=== PATIENT | male | born 1960 | race Caucasian/White ===

== ENCOUNTER → 2016-10-13 | Outpatient (CLI) | payer BC ==
--- NOTE | 2016-10-13 11:37 | REP ---
LUMBAR SPINE, FIVE VIEWS: HISTORY: Right hip pain. There is no acute fracture. The lumbar intervertebral discs are decreased in height consistent with disc degeneration. Osteophytes are present throughout the lumbar spine. There is narrowing of the L4-5 and L5 - S1 facet joints. There are 8 mm of grade 1 spondylolisthesis of L4 on L5. There appear to be L5 pars defects. IMPRESSION: Degenerative change as described above. Signed by Maicol Webb MD 10/13/2016 11:40 A
--- NOTE | 2016-10-13 12:10 | REP ---
REASON: Hip pain. COMPARISON: None. FINDINGS: The hip joint space is symmetric and relatively well maintained. T here is no acute or destructive osseous lesion. Signed by Virgil Claudio DO 10/13/2016 01:57 P
== END ==
LOC: M ADAMS 10:07
PROVIDERS: ATTEND Nurse Practitioner Adult Health
DX: M25.551 Pain in right hip (principal); M51.37 Other intervertebral disc degeneration, lumbosacral region; M25.78 Osteophyte, vertebrae; M47.817 Spondylosis without myelopathy or radiculopathy, lumbosacral region; M43.16 Spondylolisthesis, lumbar region

== ENCOUNTER → 2016-10-13 | Outpatient (REF) | payer BC ==
[2016-10-13 14:16] LABS: MEAN CORPUSCULAR HEMOGLOBIN 34.4 pg (27.0-33.0); MEAN CORPUSCULAR VOLUME 101.1 fl (80.0-96.0); RED CELL DISTRIBUTION WIDTH 12.9 % (11.5-14.5); WHITE BLOOD COUNT 5.1 K/mm3 (4.0-10.0)
[2016-10-13 14:34] LABS: ALBUMIN 4.1 GM/DL (3.2-5.2); ALBUMIN/GLOBULIN RATIO 1.46 (1.00-1.93); ALKALINE PHOSPHATASE 77 U/L (45-117); ALT/SGPT 25 U/L (12-78); ANION GAP 6 MEQ/L (8-16); AST/SGOT 18 U/L (15-37); BILIRUBIN,TOTAL 0.4 MG/DL (0.2-1.0); BLOOD UREA NITROGEN 23 MG/DL (7-18); CALCIUM LEVEL 9.3 MG/DL (8.5-10.1); CARBON DIOXIDE LEVEL 29 MEQ/L (21-32); CHLORIDE LEVEL 108 MEQ/L (98-107); CHOLESTEROL LEVEL 231 MG/DL (<200); CREATININE FOR GFR 0.83 MG/DL (0.70-1.30); GLOMERULAR FILTRATION RATE > 60.0 (>56); GLUCOSE, FASTING 105 MG/DL (70-105); POTASSIUM SERUM 4.8 MEQ/L (3.5-5.1); SODIUM LEVEL 143 MEQ/L (136-145); TOTAL PROTEIN 6.9 GM/DL (6.4-8.2); TRIGLYCERIDES LEVEL 39 MG/DL (<150); URIC ACID 3.9 MG/DL (3.5-7.2)
== END ==
LOC: M LABDRWAD 13:33
PROVIDERS: ATTEND Nurse Practitioner Adult Health
DX: Z00.00 Encounter for general adult medical examination without abnormal findings (principal); Z82.61 Family history of arthritis; Z83.3 Family history of diabetes mellitus; Z82.69 Family history of other diseases of the musculoskeletal system and connective tissue

== ENCOUNTER → 2017-11-23 | Outpatient (REF) | payer BC ==
[2017-11-23 20:21] LABS: ESTIMATED AVERAGE GLUCOSE 105 MG/DL (60-110); HEMOGLOBIN A1c 5.3 %
[2017-11-23 20:32] LABS: ALBUMIN 4.4 GM/DL (3.2-5.2); ALBUMIN/GLOBULIN RATIO 1.42 (1.00-1.93); ALKALINE PHOSPHATASE 61 U/L (45-117); ALT/SGPT 28 U/L (12-78); ANION GAP 8 MEQ/L (8-16); AST/SGOT 21 U/L (7-37); BILIRUBIN,TOTAL 0.5 MG/DL (0.2-1.0); BLOOD UREA NITROGEN 21 MG/DL (7-18); CALCIUM LEVEL 9.4 MG/DL (8.5-10.1); CARBON DIOXIDE LEVEL 27 MEQ/L (21-32); CHLORIDE LEVEL 106 MEQ/L (98-107); CHOLESTEROL LEVEL 267 MG/DL (<200); CHOLESTEROL RISK RATIO 3.423 (<5); CREATININE FOR GFR 0.69 MG/DL (0.70-1.30); GLOMERULAR FILTRATION RATE > 60.0 (>56); GLUCOSE, FASTING 72 MG/DL (70-100); HDL CHOLESTEROL 78 MG/DL (>40); LDL CHOLESTEROL 175 MG/DL (<100); NON-HDL-C 189 MG/DL; POTASSIUM SERUM 4.5 MEQ/L (3.5-5.1); RHEUMATOID FACTOR QUANT < 10.0 IU/ML (<15.0); SODIUM LEVEL 141 MEQ/L (136-145); TOTAL PROTEIN 7.5 GM/DL (6.4-8.2); TRIGLYCERIDES LEVEL 71 MG/DL (<150)
== END ==
LOC: M SFHCPLAZ 17:12
DX: Z00.00 Encounter for general adult medical examination without abnormal findings (principal); Z83.3 Family history of diabetes mellitus
CPT/HCPCS: 80053

== ENCOUNTER → 2018-03-18 | Outpatient (CLI) | payer BC ==
[~2018-03-18] MED LIST: BEE1CAP PO; MULT1TAB10 PO; OMEG10002 PO
--- NOTE | 2018-03-18 20:41 | ECGEPIP ---
Stationary ECG Study [facility] Test Date: 2018-03-18 Pat Name: DC CHERY Department: Room: - Gender: M Management Architect: : 1960 Requested By: Chino Douglas Order Number: [id number] Reading MD: Deniz Chen Measurements Intervals [place] Rate: 60 P: 42 [place]: 177 QRS: 57 QRSD: 104 T: 55 QT: 396 QTc: 398 Interpretive Statements SINUS RHYTHM Within normal limits. No prior ECG available for comparison at the time of interpretation. Electronically Signed On 03-18-2018 20:41:00 EST by Deniz Chen
== END ==
LOC: M EKG 16:37
PROVIDERS: ATTEND Anesthesiology
DX: Z01.810 Encounter for preprocedural cardiovascular examination (principal); M79.9 Soft tissue disorder, unspecified

== ENCOUNTER 2018-03-22 05:44 | Day surgery (SDC) | payer BC ==
[~2018-03-22] VITALS: Ht 180.3 cm; Wt 101.4 kg
[2018-03-22] MEDS ORDERED: LR 1,000 ML IV ONE (06:00)
[2018-03-22] MEDS ORDERED: BUPIVACAINE/EPIN 0.25% 30 ML VIAL As Ordered ONE (07:13)
[2018-03-22] MEDS ORDERED: fentaNYL 250 MCG/5 ML INJECTION (J3010) As Ordered ONE (07:14)
[2018-03-22] MEDS ORDERED: PROPOFOL 200 MG/20 ML VIAL As Ordered ONE (07:15)
[2018-03-22] MEDS ORDERED: MIDAZOLAM INJ 2 MG/2 ML VIAL (J2250) As Ordered ONE (07:15)
[2018-03-22] MEDS ORDERED: ONDANSETRON 4MG/2ML VIAL (J2405) As Ordered ONE (07:15)
[2018-03-22] MEDS ORDERED: ROCURONIUM BROMIDE 50 MG/5 ML VIAL As Ordered ONE ×3 (07:15→10:33)
[2018-03-22] MEDS ORDERED: LIDOCAINE 2% INJ 100 MG/5 ML SDV (FOR ANES.) As Ordered ONE (07:15)
[2018-03-22] MEDS ORDERED: dexameTHASONE 4 MG/ML 1ML VIAL (J1100) As Ordered ONE (07:15)
[2018-03-22] MEDS ORDERED: HYDROmorphone HCL 2 MG/ML 1ML VIAL (J1170) As Ordered ONE (08:11)
[2018-03-22] MEDS ORDERED: GLYCOPYRROLATE INJ 0.2 MG/ML 2 ML VIAL As Ordered ONE (08:20)
[2018-03-22] MEDS ORDERED: NEOSTIGMINE 10 MG/10 ML VIAL (J2710) As Ordered ONE (08:20)
[2018-03-22] MEDS ORDERED: KETOROLAC 60 MG/2 ML VIAL (J1885) As Ordered ONE (08:20)
[2018-03-22] MEDS ORDERED: fentaNYL 100 MCG/2 ML INJECTION (J3010) As Ordered ONE ×2 (09:23→10:28)
[2018-03-22] MEDS ORDERED: LABETALOL HCL 100 MG/20 ML VIAL As Ordered ONE (10:31)
[2018-03-22] MEDS ORDERED: PERCOCET 5MG/325MG TAB PO PRN (11:30)
[2018-03-22] MEDS ORDERED: fentaNYL 100 MCG/2 ML INJECTION (J3010) IV PRN (11:30)
[2018-03-22] MEDS ORDERED: ONDANSETRON 4MG/2ML VIAL (J2405) IV PRN (11:30)
[2018-03-22] MEDS ORDERED: LR 1,000 ML IV SCH (11:30)
[2018-03-22] MEDS ORDERED: NORCO, ANEXSIA 5/325MG TABLET (HYDROcodone/ACETAMINOPHEN) PO PRN (11:30)
[2018-03-22] MEDS ORDERED: METOCLOPRAMIDE INJ 10MG/2ML VIAL (J2765) IV PRN (11:30)
[2018-03-22 13:10] VITALS: BP 140/81
--- NOTE | 2018-03-22 14:10 | RO ---
DATE OF PROCEDURE: 03/22/2018 PREOPERATIVE DIAGNOSIS: Left inguinal hernia. POSTOPERATIVE DIAGNOSIS: Left inguinal hernia. PROCEDURE: Robotic-assisted left inguinal hernia repair. SURGEON: Dr. Rocky López STAGE BUILDER: Vivi Tovar ANESTHESIA: General. ESTIMATED BLOOD LOSS: 10. COMPLICATIONS: None. INDICATION FOR PROCEDURE: The patient is a 57-year-old male who presents with a large left inguinal hernia. Recommendation was to proceed with robotic repair. Risks and benefits of the procedure not limited to, but including bleeding, infection, hernia formation, hernia recurrence, damage to surrounding structures, need for further surgery were discussed in detail with the patient. Informed consent was obtained and the procedure was planned. DESCRIPTION OF PROCEDURE: The patient was brought back to operating room seven after sufficient sedation. A Elizabeth catheter was placed. Next, the abdomen was sterilely prepped and draped. A time-out was done to confirm proper patient and proper procedure. Next, an 8 mm incision made supraumbilically in the midline. Veress needle was inserted and his abdomen was insufflated to 15 mmHg. Next, the Veress needle was removed and a 5 mm OptiVu port was used to gain access to the abdomen. Once the abdomen was entered, two 8 mm robotic ports were placed in the left and right abdomen. The 5 mm port was then removed and replaced with an 8 mm robotic camera port. Next, the robot was docked to the ports. The peritoneum was then incised in a curved incision in the left groin to expose the preperitoneal space. Preperitoneal space was then dissected from lateral to medial, around the lateral side of the cord structures and the hernia sac. The same process was done medially until the pubic symphysis was identified. Once this was completed, the dissection was taken circumferentially around the hernia sac trying to reduce it. The hernia sac was extremely large with extensive adhesions and was very long as well. I was unable to completely reduce the entire thing. I reduced as much as possible and to the point where all the cord structures were easily identified and they were safely out of the way and then ligated the hernia sac from there. Once that was completed, Bard 3DMax mesh was placed in the preperitoneal space, sutured to the pubic symphysis with a #2-0 Vicryl suture. The peritoneum was then closed with a running and #2-0 V-Loc suture, thus ending the procedure. The port sites were closed with #4-0 Vicryl subcuticular sutures. The abdomen cleaned and dried. Steri-Strips, 4x4 and tape were applied, thus ending the procedure.
== END 2018-03-22 13:16 | disposition home or self-care (01) ==
LOC: M SDC 05:44 → MERGE 07:30 → M SDC 13:16
PROVIDERS: ATTEND Surgery
DX: K40.90 Unilateral inguinal hernia, without obstruction or gangrene, not specified as recurrent (principal); Z79.899 Other long term (current) drug therapy
CPT/HCPCS: 49650; A6024; C1781; J0690; J1100; J1170; J1885; J2250; J2405; J3010

== ENCOUNTER → 2019-07-23 | Outpatient (CLI) | payer OTHER, MEDICAID ==
[~2019-07-23] MED LIST changes: +MULTIVITAMIN PO
[2019-07-23 15:40] LABS: BASO % 0.6 % (0.0-1.0); EOS # 0.3 10^3/uL (0.0-0.5); EOS % 3.8 % (0.0-3.0); HEMATOCRIT 44.4 % (42.0-52.0); LYMPH # 1.4 10^3/uL (1.5-5.0); LYMPH % 19.2 % (24.0-44.0); MEAN CORPUSCULAR HEMOGLOBIN 33.4 pg (27.0-33.0); MEAN CORPUSCULAR HGB CONC 33.8 g/dl (32.0-36.5); MEAN CORPUSCULAR VOLUME 98.9 fl (80.0-96.0); MONO # 0.7 10^3/uL (0.0-0.8); MONO % 9.7 % (0.0-5.0); NEUTROPHILS # 4.8 10^3/uL (1.5-8.5); NEUTROPHILS % 66.4 % (36.0-66.0); PLATELET COUNT, AUTOMATED 230 10^3/uL (150-450); RED BLOOD COUNT 4.49 10^6/uL (4.30-6.10); WHITE BLOOD COUNT 7.2 10^3/uL (4.0-10.0)
[2019-07-23 16:00] LABS: BLOOD UREA NITROGEN 15 MG/DL (7-18); CALCIUM LEVEL 9.3 MG/DL (8.5-10.1); CARBON DIOXIDE LEVEL 28 MEQ/L (21-32); CHLORIDE LEVEL 103 MEQ/L (98-107); CREATININE FOR GFR 0.74 MG/DL (0.70-1.30); GLOMERULAR FILTRATION RATE > 60.0 (>56); GLUCOSE, FASTING 84 MG/DL (70-100); POTASSIUM SERUM 4.1 MEQ/L (3.5-5.1); SODIUM LEVEL 138 MEQ/L (136-145)
--- NOTE | 2019-07-24 18:11 | ECGEPIP ---
[facility] Test Date: 2019-07-23 Pat Name: DC CHERY Department: Room: - Gender: Male Barrel Filler Head: MARISELA : 1960 Requested By: Tanner Cervantes Order Number: [id number] Reading MD: Alfred Dodge Measurements Intervals [place] Rate: 80 P: 24 [place]: 125 QRS: 55 QRSD: 110 T: 45 QT: 359 QTc: 415 Interpretive Statements SINUS RHYTHM SIMILAR TO 03/18/18 Electronically Signed on 07-24-2019 18:10:56 EDT by Alfred Dodge
== END ==
LOC: M LAB 15:04
PROVIDERS: ATTEND Podiatrist
DX: M20.22 Hallux rigidus, left foot (principal); M79.672 Pain in left foot

== ENCOUNTER → 2019-08-05 | Outpatient (CLI) | payer BC, OTHER, MEDICAID | LOC: M LABSMTC 10:24 | PROVIDERS: ATTEND Anesthesiology | DX: Z01.818 Encounter for other preprocedural examination (principal); Z11.59 Encounter for screening for other viral diseases | CPT/HCPCS: C9803; U0003 ==

== ENCOUNTER 2019-08-08 07:07 | Day surgery (SDC) | payer OTHER ==
[~2019-08-08] VITALS: Ht 180.3 cm; Wt 102.1 kg
[~2019-08-08 07:07] MED LIST changes: +LIDOCAINE 1% MDV 20ML VIAL SQ PRN; +ceFAZolin SOD 2 GM in IV 1 EA IV ONE
[2019-08-08] MEDS ORDERED: NEOSPORIN GU IRRIG 20 ML VIAL As Ordered ONE (07:28)
[2019-08-08] MEDS ORDERED: BUPIVACAINE HCL 0.5% 30 ML VIAL As Ordered ONE (07:28)
[2019-08-08] MEDS ORDERED: dexameTHASONE 4 MG/ML 1ML VIAL (J1100 PER 1MG) As Ordered ONE ×2 (07:28→09:56)
[2019-08-08] MEDS ORDERED: BACITRACIN PWD 50,000 UNITS VIAL As Ordered ONE (07:28)
[2019-08-08] MEDS ORDERED: LIDOCAINE 2% MDV 20ML VIAL As Ordered ONE (07:28)
[2019-08-08] MEDS ORDERED: fentaNYL 100 MCG/2 ML INJECTION (J3010) As Ordered ONE (08:01)
[2019-08-08] MEDS ORDERED: LIDOCAINE 2% 100MG/5ML SDV (FOR ANES.) As Ordered ONE (08:01)
[2019-08-08] MEDS ORDERED: MIDAZOLAM INJ 2MG/2ML VIAL (J2250 PER 1MG) As Ordered ONE ×2 (08:01→09:43)
[2019-08-08] MEDS ORDERED: propofoL 200 MG/20 ML VIAL As Ordered ONE ×3 (08:01→10:56)
[2019-08-08] MEDS ORDERED: LR 1,000 ML IV ONE (08:15)
[2019-08-08] MEDS ORDERED: ACETAMINOPHEN 1000MG 100ML IV BTL (OFIRMEV) (J0131 PER 10MG) As Ordered ONE (09:53)
[2019-08-08] MEDS ORDERED: KETOROLAC 60 MG/2 ML VIAL As Ordered ONE (09:56)
[2019-08-08] MEDS ORDERED: ONDANSETRON 4MG/2ML VIAL As Ordered ONE (09:56)
[2019-08-08 12:35] VITALS: BP 158/84
--- NOTE | 2019-08-08 13:34 | REP ---
RIGHT FOOT, THREE VIEWS: Three views of the right foot performed. There is metallic a plate and multiple metallic screws fusing the 1st metatarsophalangeal joint. There is mild posterior and inferior calcaneal spurring. Osseous structures are well aligned. Overlying cast obscures underlying osseous detail. Electronically Signed by Rocky Marrero MD 08/08/2019 03:54 P
--- NOTE | 2019-08-15 16:47 | RO ---
DATE OF PROCEDURE: 08/08/2019 PREPROCEDURE DIAGNOSIS: Hallux rigidus deformity, left foot. POSTPROCEDURE DIAGNOSIS: Hallux rigidus deformity, left foot. PROCEDURE PERFORMED: Fusion 1st metatarsophalangeal joint, left foot, with plate and screw fixation. SURGEON: Tanner Cervantes DPM COMMERCIAL ART INSTRUCTOR: None. ANESTHESIA: Local monitored anesthesia care (MAC). IRRIGATION: Dilute bacitracin, neomycin and polymyxin B solution. HEMOSTASIS: Ankle pneumatic tourniquet 225 mmHg for 75 minutes. HARDWARE UTILIZED: Arthrex standard MTP plate with locking and nonlocking screws 3.0 x 18, 22 and 34 mm and a locking screw 18 mm, 20 mm and 22 mm. DESCRIPTION OF PROCEDURE: On 08/08/2019, this 58-year-old male was taken from his hospital room to the operating room, placed on the operating table in the supine position. Following the induction of intravenous (IV) sedation and local and regional anesthesia, the left lower extremity was prepped and draped in the usual aseptic manner. Attention was directed to the patient's left foot where there was noted to be a hallux rigidus deformity. At this time, the following procedure was performed: FUSION 1ST METATARSOPHALANGEAL JOINT, LEFT FOOT: Attention was directed to the patient's left foot where there was noted to be a significant hallux rigidus deformity. At this time, a 7 cm incision was placed centered over the 1st metatarsophalangeal joint. The incision was deepened through subcutaneous tissues and all coursing venous tributaries were identified, underscored, clamped, cut, ligated and electrocoagulated as necessary. A linear capsulotomy was performed in the same plane as the original skin incision. The capsular and periosteal structures were then dissected free in one continuous layer dorsally, medially and laterally, thus creating a capsular periosteal-type envelope. Considerable erosion and lack of cartilage was noted of the 1st metatarsophalangeal joint, which precluded any joint salvage procedure, and, therefore, a fusion was performed. Utilizing a metatarsal elevator, the sesamoids were freed from the plantar surface of the metatarsal. Utilizing a rongeur and sagittal saw, all spurring aspects of the bone were removed. Utilizing cup and comb reamers. The 1st metatarsophalangeal joint was reamed, then fenestrated with a 1.6 mm wire to promote fusion. Hallux was placed in a slightly dorsiflexed but straight alignment with the 2nd toe, taking care to ensure that the plantar pulp of the hallux was parallel to the weightbearing surface. Initial K-wire was utilized for visualization of the fixation site, was found to be in good position, and a 3.0 x 34 mm compression screw was utilized to form compression across the 1st metatarsophalangeal joint. A standard metatarsophalangeal plate appropriate for the left foot was then utilized and then fixated with nonlocking and locking screws. Nonlocking screws 3.0 x 18 and 22 and locking screws 18 mm, 18 mm, 20 mm and a 22 mm screw. The fusion site was noted to be solid. The wound was flushed with copious amounts of dilute bacitracin, neomycin and polymyxin B solution. Attention was directed towards closure where the capsular structures were coapted and maintained utilizing #3-0 Monocryl in a simple interrupted type fashion, subcutaneous tissue was coapted and maintained utilizing #4-0 Monocryl in a simple interrupted type fashion. Skin incision was coapted and maintained utilizing #4-0 Prolene in a simple interrupted and horizontal mattress type fashion. Following the completion of the surgical procedure, the foot was bandaged with Toni Kerlix, and a fiberglass boot cast was then applied on his foot. The patient having apparently tolerated the surgical procedure well was taken from the operating room (OR) to the recovery room, further monitoring by the anesthesia department. Postoperative instructions given upon discharge.
== END 2019-08-08 13:55 | disposition home or self-care (01) ==
LOC: M SDC 07:07
PROVIDERS: ATTEND Podiatrist
DX: M20.22 Hallux rigidus, left foot (principal); M79.672 Pain in left foot; F41.9 Anxiety disorder, unspecified; F32.9 Major depressive disorder, single episode, unspecified; Z87.891 Personal history of nicotine dependence
CPT/HCPCS: 28750; 73630; 88304; C1713; J0131; J0690; J1100; J1885; J2250; J2405; J3010

== ENCOUNTER → 2019-12-08 | Outpatient (CLI) | payer OTHER ==
[~2019-12-08] MED LIST changes: -LIDOCAINE 1% MDV 20ML VIAL SQ PRN; -ceFAZolin SOD 2 GM in IV 1 EA IV ONE
[2019-12-08 12:56] LABS: ALBUMIN 4.1 GM/DL (3.2-5.2); ALT/SGPT 30 U/L (12-78); BILIRUBIN,TOTAL 0.4 MG/DL (0.2-1.0); BLOOD UREA NITROGEN 28 MG/DL (7-18); CALCIUM LEVEL 9.4 MG/DL (8.5-10.1); CARBON DIOXIDE LEVEL 26 MEQ/L (21-32); CHLORIDE LEVEL 110 MEQ/L (98-107); CHOLESTEROL LEVEL 250 MG/DL (<200); CHOLESTEROL RISK RATIO 3.571 (<5); CREATININE FOR GFR 0.84 MG/DL (0.70-1.30); GLOMERULAR FILTRATION RATE > 60.0 (>56); GLUCOSE, FASTING 115 MG/DL (70-100); HDL CHOLESTEROL 70 MG/DL (>40); LDL CHOLESTEROL 166 MG/DL (<100); NON-HDL-C 180 MG/DL; POTASSIUM SERUM 4.7 MEQ/L (3.5-5.1); SODIUM LEVEL 142 MEQ/L (136-145); TOTAL PROTEIN 7.3 GM/DL (6.4-8.2); TRIGLYCERIDES LEVEL 69 MG/DL (<150)
[2019-12-08 13:09] LABS: HEMOGLOBIN A1c 5.3 %
== END ==
LOC: M PLALAB 07:58
PROVIDERS: ATTEND Nurse Practitioner Adult Health
DX: Z00.00 Encounter for general adult medical examination without abnormal findings (principal); Z82.0 Family history of epilepsy and other diseases of the nervous system; Z83.3 Family history of diabetes mellitus; Z13.220 Encounter for screening for lipoid disorders

== ENCOUNTER → 2019-12-23 | Outpatient (REF) | payer OTHER, MEDICAID, BC ==
[2019-12-23 15:08] LABS: FOLATE 18.9 NG/ML; THYROID STIMULATING HORMONE 3.18 uIU/ML (0.358-3.740)
[2020-01-08 14:09] LABS: CERULOPLASMIN 24.7 mg/dL (16.0-31.0); VITAMIN B1 LEVEL WHOLE BLOOD 159.6 nmol/L (66.5-200.0); VITAMIN E(ALPHA TOCOPHEROL) 19.4 mg/L (7.0-25.1); VITAMIN E(GAMMA TOCOPHEROL) 0.6 mg/L (0.5-5.5)
== END ==
LOC: M LABDRWAD 12:38
PROVIDERS: ATTEND Psychiatry & Neurology Neurology
DX: R25.1 Tremor, unspecified (principal); R26.2 Difficulty in walking, not elsewhere classified